=== PATIENT | male | born 1945 | race Caucasian/White ===

== ENCOUNTER → 2020-08-02 19:07 | Outpatient (ROUT) | payer MEDICARE, OTHER, SELFPAY ==
[2020-08-02 19:33] LABS: Aspartate Aminotransferase 34 IU/L (17-59); BUN Creatinine Ratio 22.9 (6-22); Blood Urea Nitrogen 22 mg/dL (9-20); Calcium 9.6 mg/dL (8.4-10.2); Carbon Dioxide 29 mmol/L (22-32); Chloride 106 mmol/L (98-107); Cholesterol 103 mg/dL (140-199); Estimated Glomerular Filt Rate > 60.0 mL/min (>60); Glucose 99 mg/dL (80-110); HDL Cholesterol 40 mg/dL (40-60); HEMOLYSIS < 15 (0-50); LDL Cholesterol Calculated 45 mg/dL (<100); Potassium 4.9 mmol/L (3.4-5.1); Sodium 141 mmol/L (137-145); Triglycerides 88 mg/dL (35-150)
[2020-08-02 19:35] LABS: Hemoglobin A1C% w Est Avg Glu 5.3 % (4.0-6.0)
== END ==
PROVIDERS: PCP Internal Medicine; Visit Provider Internal Medicine
DX: I10 Essential (primary) hypertension (principal); J45.998 Other asthma; E78.2 Mixed hyperlipidemia
CPT/HCPCS: 80048; 80061; 83036; 84450

== ENCOUNTER → 2022-02-01 09:55 | Outpatient (CLI) | payer MEDICARE, SELFPAY ==
[2022-02-01 10:42] LABS: Hematocrit 43.3 % (41-53); Hemoglobin 14.8 g/dL (13.5-17.5); Mean Corpuscular HGB Conc 34.1 % (30-36); Mean Corpuscular Hemoglobin 32.4 PG (26-34); Mean Corpuscular Volume 95.1 fL (80-100); Platelet Count 203 X10^3/uL (150-400); Red Blood Cell Count 4.55 X10^6/uL (4.5-5.9); Red Cell Distribution Width 13.1 % (11.6-14.8); White Blood Cell Count 4.6 X10^3/uL (4.5-11.0)
[2022-02-01 11:08] LABS: Alanine Aminotransferase 26 IU/L (<50); Albumin 4.4 g/dL (3.5-5.0); Albumin Globulin Ratio 1.6 (1.0-2.8); Alkaline Phosphatase 70 U/L (38-126); Aspartate Aminotransferase 34 IU/L (17-59); BUN Creatinine Ratio 19.4 (6-22); Bilirubin Total 1.1 mg/dL (0.2-1.3); Blood Urea Nitrogen 21 mg/dL (9-20); Calcium 8.8 mg/dL (8.4-10.2); Carbon Dioxide 28 mmol/L (22-32); Chloride 105 mmol/L (98-107); Cholesterol 111 mg/dL (140-199); Estimated Glomerular Filt Rate > 60 mL/min (>60); Globulin 2.8 g/dL (1.7-4.1); Glucose 107 mg/dL (80-110); HDL Cholesterol 34 mg/dL (40-60); HEMOLYSIS < 15 (0-50); LDL Cholesterol Calculated 56 mg/dL (<100); Potassium 4.5 mmol/L (3.4-5.1); Sodium 142 mmol/L (137-145); Total Protein 7.2 g/dL (6.3-8.2); Triglycerides 107 mg/dL (35-150)
[2022-02-01 12:04] LABS: TSH w/ Reflex to FT4 3.61 uIU/mL (0.47-4.68)
== END ==
PROVIDERS: PCP Internal Medicine; Referring Provider Internal Medicine; Visit Provider Internal Medicine
DX: E78.2 Mixed hyperlipidemia (principal); J45.20 Mild intermittent asthma, uncomplicated; N13.8 Other obstructive and reflux uropathy; N40.1 Benign prostatic hyperplasia with lower urinary tract symptoms
CPT/HCPCS: 36415; 80053; 80061; 84443; 85027

== ENCOUNTER → 2022-09-17 17:39 | Outpatient (CLI) | payer MEDICARE, SELFPAY ==
--- NOTE | 2022-09-17 17:41 | DI.RAD.S_ITS ---
PROCEDURE: XR SHOULDER RT MIN 2V INDICATIONS: right shoulder pain s/p trauma TECHNIQUE: Three views of the shoulder were acquired. COMPARISON: None. FINDINGS: Bones: No acute fractures or dislocations. No suspicious bony lesions. Visualized ribs appear intact. Moderate degenerative changes are seen in the acromioclavicular joint and at the glenohumeral joint. Soft tissues: No suspicious soft tissue calcifications. IMPRESSION: 1. Moderate acromioclavicular and glenohumeral osteoarthrosis. 2. No acute osseous abnormality. If the symptoms persist, consider cross sectional imaging such as MRI or CT for further assessment. Approved by: Karel Calixto M.D. on 09/18/2022 at 11:54
== END ==
PROVIDERS: PCP Internal Medicine; Referring Provider Internal Medicine; Visit Provider Internal Medicine
DX: M19.011 Primary osteoarthritis, right shoulder (principal); M75.81 Other shoulder lesions, right shoulder
CPT/HCPCS: 73030

== ENCOUNTER → 2023-01-15 11:12 | Outpatient (CLI) | payer MEDICARE, SELFPAY ==
[2023-01-15 13:06] LABS: Add Manual Diff / Slide Review NO; Basophils Absolute Auto 0 /uL (0-100); Basophils Percent Auto 1.1 % (0-2); Eosinophils Absolute Auto 300 /uL (0-450); Eosinophils Percent Auto 5.6 % (2-4); Hematocrit 38.1 % (41-53); Hemoglobin 12.4 g/dL (13.5-17.5); Lymphocytes Absolute Auto 1400 /uL (1100-4500); Mean Corpuscular HGB Conc 32.5 % (30-36); Mean Corpuscular Hemoglobin 28.7 PG (26-34); Mean Corpuscular Volume 88.1 fL (80-100); Monocytes Absolute Auto 400 /uL (0-900); Neutrophils Absolute Auto 2400 /uL (1500-7000); Neutrophils Percent Auto 53.3 % (50-75); Platelet Count 238 X10^3/uL (150-400); Red Blood Cell Count 4.32 X10^6/uL (4.5-5.9); Red Cell Distribution Width 15.2 % (11.6-14.8); White Blood Cell Count 4.5 X10^3/uL (4.5-11.0)
[2023-01-15 13:35] LABS: HEMOLYSIS < 15 (0-50); Iron 62 ug/dL (49-181)
[2023-01-15 13:39] LABS: Alanine Aminotransferase 19 IU/L (<50); Albumin 4.1 g/dL (3.5-5.0); Albumin Globulin Ratio 1.6 (1.0-2.8); Alkaline Phosphatase 74 U/L (38-126); Aspartate Aminotransferase 30 IU/L (17-59); BUN Creatinine Ratio 18.8 (6-22); Bilirubin Total 0.9 mg/dL (0.2-1.3); Blood Urea Nitrogen 21 mg/dL (9-20); Calcium 9.3 mg/dL (8.4-10.2); Carbon Dioxide 28 mmol/L (22-32); Chloride 104 mmol/L (98-107); Estimated Glomerular Filt Rate > 60 mL/min (>60); Globulin 2.6 g/dL (1.7-4.1); Glucose 98 mg/dL (80-110); HEMOLYSIS < 15 (0-50); Potassium 5.2 mmol/L (3.4-5.1); Sodium 139 mmol/L (137-145); Total Protein 6.7 g/dL (6.3-8.2)
[2023-01-15 13:46] LABS: Percent Iron Saturation 14 % (20-50); Total Iron Binding Capacity 434 ug/dL (261-462); Transferrin 373 mg/dL (206-381)
[2023-01-15 14:01] LABS: Prostate Specific Antigen 3.66 ng/mL (0.10-4.00)
[2023-01-15 14:05] LABS: Ferritin 7 ng/mL (18-464)
== END ==
PROVIDERS: PCP Internal Medicine; Referring Provider Specialist; Visit Provider Specialist
DX: R97.20 Elevated prostate specific antigen [PSA] (principal); E61.1 Iron deficiency; I10 Essential (primary) hypertension
CPT/HCPCS: 36415; 80053; 82728; 83540; 83550; 84153; 85025

== ENCOUNTER → 2023-01-25 09:29 | Outpatient (CLI) | payer MEDICARE, SELFPAY ==
[2023-01-25 10:11] LABS: Occult Blood 1 Negative (Negative); Occult Blood 2 Negative (Negative); Occult Blood 3 Negative (Negative)
== END ==
PROVIDERS: PCP Internal Medicine; Referring Provider Internal Medicine; Visit Provider Internal Medicine
DX: D50.9 Iron deficiency anemia, unspecified (principal)
CPT/HCPCS: 82270

== ENCOUNTER → 2023-04-02 11:13 | Outpatient (CLI) | payer MEDICARE, SELFPAY ==
[2023-04-02 12:00] LABS: Hematocrit 41.3 % (41-53); Hemoglobin 13.8 g/dL (13.5-17.5); Mean Corpuscular HGB Conc 33.4 % (30-36); Mean Corpuscular Hemoglobin 31.1 PG (26-34); Mean Corpuscular Volume 92.9 fL (80-100); Platelet Count 192 X10^3/uL (150-400); Red Blood Cell Count 4.45 X10^6/uL (4.5-5.9); Red Cell Distribution Width 15.7 % (11.6-14.8); White Blood Cell Count 5.1 X10^3/uL (4.5-11.0)
[2023-04-02 12:51] LABS: HEMOLYSIS < 15 (0-50); Iron 80 ug/dL (49-181)
[2023-04-02 13:03] LABS: Percent Iron Saturation 23 % (20-50); Total Iron Binding Capacity 344 ug/dL (261-462); Transferrin 286 mg/dL (206-381)
[2023-04-02 13:31] LABS: Ferritin 15 ng/mL (18-464)
== END ==
PROVIDERS: PCP Internal Medicine; Referring Provider Internal Medicine; Visit Provider Internal Medicine
DX: D50.9 Iron deficiency anemia, unspecified (principal)
CPT/HCPCS: 36415; 82728; 83540; 83550; 85027

== ENCOUNTER → 2023-08-05 07:55 | Outpatient (CLI) | payer MEDICARE, SELFPAY ==
--- NOTE | 2023-08-05 07:57 | DI.NM.S_ITS ---
PROCEDURE: NM TOSHIA PERF SPECT REST & STR Rest and exercise myocardial perfusion SPECT with gated imaging and ejection fraction RADIOPHARMACEUTICAL: 26.4 mCi Tc-99m sestamibi IV at rest and 11.8 mCi Tc-99m sestamibi IV at peak exercise. A [id number] was performed. INDICATIONS: chest tightness TECHNIQUE: Radiopharmaceutical was injected at peak stress test, and also at rest. SPECT images were obtained. SPECT myocardial perfusion images were displayed in short axis, horizontal long axis, and vertical long axis views. Gated images were reviewed using [employer] software. COMPARISON: None. CARDIAC STRESS: A standard Dg treadmill exercise tolerance test was performed by the patient under the supervision of an attending staff. The patient exercised for 6 minutes and 0 seconds; 7.0 METS; functional aerobic impairment (SHRUTHI) is -3%. Hemodynamic data: There is normal blood pressure and heart rate response to exercise stress. Patient achieved 88% of maximum predicted heart rate at peak exercise. Maximum blood pressure 180/80. Symptoms: Patient complained of substernal chest pain during exercise. EK mm horizontal to upsloping ST segment depressions V4 to V6; no ectopy. FINDINGS: Raw data: There is good myocardial labeling by radiotracer. No significant motion artifacts. Yoyd-ts-bbwcl ratio is 0.53 (normal is less than 0.38 for sestamibi tracer, and less than 0.50 for thallium tracer). Left ventricle function: Gated images demonstrate normal left ventricle wall thickening. No segmental wall motion abnormality. No transient ischemic dilation; TID is 0.86 (normal less than 1.3). The left ventricle resting end-diastolic volume is 128 mL. Left ventricle stress ejection fraction is 71%; normal values are above 45%. Myocardial perfusion: There is normal distribution of activity in the left and right ventricular myocardium. No fixed or reversible perfusion defects. IMPRESSION: Lower risk study for ischemia. No evidence of exercise-induced ischemia on SPECT imaging. Slightly dilated left ventricle with normal function. Abnormal exercise ECG with associated substernal chest pain however less likely to be due to ischemia in the setting of normal perfusion imaging. Normal hemodynamic response. Normal exercise capacity. Dictated by: Isadora Dyer D.O. on 08/06/2023 at 12:49 Approved by: Isadora Dyer D.O. on 08/06/2023 at 12:54
== END ==
LOC: NUCM 07:56
PROVIDERS: PCP Internal Medicine; Referring Provider Internal Medicine; Visit Provider Internal Medicine
DX: I20.89 Other forms of angina pectoris (principal); R94.31 Abnormal electrocardiogram [ECG] [EKG]
CPT/HCPCS: 78452; 93017; A9502

== ENCOUNTER → 2023-09-17 11:03 | Outpatient (CLI) | payer MEDICARE, SELFPAY ==
--- NOTE | 2023-09-17 11:04 | DI.RAD.S_ITS ---
PROCEDURE: XR CHEST 2V INDICATIONS: shortness of breath TECHNIQUE: 2 views of the chest were acquired. COMPARISON: None. FINDINGS: Surgical changes and devices: None. Lungs and pleura: THERE IS PERIBRONCHIAL CUFFING. NO PLEURAL EFFUSIONS OR PNEUMOTHORAX. Mediastinum: Mediastinal contours are normal. Heart size is normal. Bones and chest wall: No suspicious bony abnormalities. Soft tissues appear unremarkable. IMPRESSION: 1. THERE IS PERIBRONCHIAL CUFFING. THIS FINDING CAN BE SEEN IN PATIENTS WITH SMALL AIRWAYS INFLAMMATORY DISEASE SUCH BRONCHIOLITIS AND ASTHMA. Dictated by: Natan Cottrell M.D. on 09/17/2023 at 12:20 Approved by: Natan Cottrell M.D. on 09/17/2023 at 12:25
== END ==
LOC: RAD 11:04
PROVIDERS: PCP Internal Medicine; Referring Provider Internal Medicine; Visit Provider Internal Medicine
DX: J45.20 Mild intermittent asthma, uncomplicated (principal)
CPT/HCPCS: 71046

== ENCOUNTER → 2024-01-28 10:02 | Outpatient (CLI) | payer MEDICARE, SELFPAY | PROVIDERS: PCP Internal Medicine; Visit Provider Urology | DX: N40.1 Benign prostatic hyperplasia with lower urinary tract symptoms (principal); R31.29 Other microscopic hematuria; N13.8 Other obstructive and reflux uropathy; R35.1 Nocturia; R97.20 Elevated prostate specific antigen [PSA] | CPT/HCPCS: 51798; 81002; 87086; 99214 ==

== ENCOUNTER → 2024-02-28 15:06 | Outpatient (CLI) | payer MEDICARE, SELFPAY ==
[2024-02-28 16:15] LABS: Hematocrit 39.3 % (41-53); Mean Corpuscular Hemoglobin 31.2 PG (26-34); Mean Corpuscular Volume 94.5 fL (80-100); Platelet Count 232 X10^3/uL (150-400); Red Blood Cell Count 4.16 X10^6/uL (4.5-5.9); Red Cell Distribution Width 13.8 % (11.6-14.8); White Blood Cell Count 7.5 X10^3/uL (4.5-11.0)
[2024-02-28 16:32] LABS: Aspartate Aminotransferase 31 IU/L (17-59); BUN Creatinine Ratio 22.1 (6-22); Blood Urea Nitrogen 23 mg/dL (9-20); Calcium 9.2 mg/dL (8.4-10.2); Carbon Dioxide 30 mmol/L (22-32); Chloride 105 mmol/L (98-107); Cholesterol 112 mg/dL (140-199); Estimated Glomerular Filt Rate > 60 mL/min (>60); Glucose 82 mg/dL (80-110); HDL Cholesterol 41 mg/dL (40-60); LDL Cholesterol Calculated 47 mg/dL (<100); Potassium 4.8 mmol/L (3.4-5.1); Sodium 138 mmol/L (137-145); Triglycerides 120 mg/dL (35-150)
[2024-02-28 17:09] LABS: Ferritin 47 ng/mL (18-464); HEMOLYSIS < 15 (0-50)
== END ==
PROVIDERS: PCP Internal Medicine; Referring Provider Internal Medicine; Visit Provider Internal Medicine
DX: E78.2 Mixed hyperlipidemia (principal); N40.1 Benign prostatic hyperplasia with lower urinary tract symptoms; N13.8 Other obstructive and reflux uropathy; J45.20 Mild intermittent asthma, uncomplicated
CPT/HCPCS: 36415; 80048; 80061; 82728; 84450; 85027

== ENCOUNTER → 2024-09-03 14:11 | Outpatient (CLI) | payer MEDICARE, SELFPAY ==
--- NOTE | 2024-09-03 14:12 | DI.RAD.S_ITS ---
PROCEDURE: XR SHOULDER LT MIN 2V INDICATIONS: left shoulder pain after fall 09/01 TECHNIQUE: Three views of the left shoulder were acquired. COMPARISON: [facility], CR, XR SHOULDER RT MIN 2V, 09/17/2022, 17:35. FINDINGS: Bones: There are no osseous abnormalities. Acromioclavicular and glenohumeral joints: Minimal degeneration of both joints Soft tissues: A 4 mm calcification overlies the superior glenohumeral joint. This could resent loose body or calcific tendinitis of the mid rotator cuff. IMPRESSION: Minimal degeneration. Loose body versus calcific tendinitis mid rotator cuff Dictated by: Tavo Ortiz M.D. on 09/04/2024 at 11:26 Approved by: Tavo Ortiz M.D. on 09/04/2024 at 11:27
== END ==
PROVIDERS: PCP Internal Medicine; Referring Provider Internal Medicine; Visit Provider Internal Medicine
DX: M75.102 Unspecified rotator cuff tear or rupture of left shoulder, not specified as traumatic (principal)
CPT/HCPCS: 73030